=== PATIENT | male | born 1975 | race Caucasian/White ===

== ENCOUNTER 2023-02-07 08:32 | Outpatient (CLI) | payer BC | END 2023-02-07 08:33 | disposition home or self-care (01) | LOC: MRI 08:32 | PROVIDERS: ATTEND Family Medicine | DX: M50.122 Cervical disc disorder at C5-C6 level with radiculopathy (principal); M50.123 Cervical disc disorder at C6-C7 level with radiculopathy; R53.1 Weakness; I67.89 Other cerebrovascular disease | CPT/HCPCS: 70551; 72141 ==